=== PATIENT | female | born 1975 ===

== ENCOUNTER 2018-06-10 10:36 | Outpatient (CLI) | payer OTHER | END 2018-06-10 10:40 | disposition home or self-care (01) | LOC: SONOGRAMA 10:36 | DX: N84.0 Polyp of corpus uteri (principal); N92.5 Other specified irregular menstruation ==

== ENCOUNTER 2018-07-03 11:08 | Day surgery (SDC) | payer OTHER ==
[2018-07-03] MEDS ORDERED: ACETAMINOPHEN-1 EAC2 PO (18:31)
[2018-07-03] MEDS ORDERED: KETO10TA2 PO (18:31)
== END 2018-07-03 19:00 | disposition home or self-care (01) ==
LOC: CIR.AMB 11:08
DX: N84.0 Polyp of corpus uteri (principal)